=== PATIENT | male | born 1995 | race Caucasian/White ===

== ENCOUNTER 2016-04-20 20:21 | Emergency (ER) | payer OTHER ==
[~2016-04-20] VITALS: Ht 188 cm; Wt 118.0 kg
[2016-04-20 20:22] VITALS: BP 141/86; PULSE 84; RESP 14; TEMP 98.3; O2SAT 98
--- NOTE | 2016-04-20 21:23 | PD ---
HPI Chief Complaint: Skin Problem Time Seen by Provider: 21:20 Travel History International Travel<30 days: No Contact w/Intl Traveler<30days: No Traveled to known affect area: No History of Present Illness HPI Patient comes in complaining of a pruritic rash, her personal week. He states started on his hands has since spread over his entire body with sparing his face and genitals. Itching is worse at night. Denies anything making it better. Patient denies any fevers, being around anyone else with similar, or known new allergen exposures. PFSH Past Medical History Medical History: Denies Significant Hx Social History Alcohol Use: No Tobacco Use: Yes (cigars) Substance Use: No Allergies-Medications (Allergen,Severity, Reaction): Coded Allergies: No Known Allergies (Unverified , 04/20/16) Reported Meds & Prescriptions Reported Meds & Active Scripts Active Permethrin Topical (Permethrin) 5% Cream 1 Applic TOPICAL ONCE Review of Systems Except as stated in HPI: all other systems reviewed are Neg Physical Exam Narrative GENERAL: Well-developed, overly nourished, in no acute distress, and non-ill appearing. SKIN: Warm and dry. Patient has rash consistent with scabies noted bilateral upper extremities. HEAD: Atraumatic. Normocephalic. EYES: Pupils equal and round. EOMI. No scleral icterus. No injection or drainage. ENT: No nasal bleeding or discharge. Mucous membranes pink and moist. NECK: Trachea midline. Supple. No nuclear rigidity. RESPIRATORY: No accessory muscle use. No respiratory distress. MUSCULOSKELETAL: No obvious deformities. No clubbing. No cyanosis. No edema. Full range of motion. NEUROLOGICAL: Awake and alert. No obvious cranial nerve deficits. Motor grossly within normal limits. Normal speech. PSYCHIATRIC: Appropriate mood and affect; insight and judgment normal. Data Data Last Documented VS Vital Signs Date Time Temp Pulse Resp B/P Pulse Ox O2 Delivery O2 Flow Rate FiO2 04/20/16 20:22 98.3 84 14 141/86 98 Room Air MDM Medical Decision Making Medical Screen Exam Complete: Yes Emergency Medical Condition: Yes Differential Diagnosis Allergic reaction, cellulitis, folliculitis, scabies, cellulitis, other Narrative Course The patient presents with pruritic rash consistent with scabies. The lesions are papular and in the typical distribution for scabies. There is no evidence of secondary infection such as cellulitis or impetigo. The rash does not appear to be viral or typical of contact dermatitis or folliculitis by history and exam. Doubtful is atopic dermatitis as well. The patient was informed regarding spread by [id number] contact and via fomites such as clothes, blankets, bedding and furniture. The patient will be discharged on Permethrin cream and the patient was instructed on use and to avoid mouth, eyes, nose and anus. The patient was also instructed on having all family members and exposed persons seen by a primary career resource technician and be treated as well. The patient agreed with plan. Patient in no obvious distress upon re-evaluation. Patient was asked if they wanted to speak to my attending, which the patient did not wish to do at this time. Any questions/concerns in reference to patient diagnosis/condition discussed and clarified prior to patient's discharge. Reinforced sheer importance of close follow up with patient's primary physician or primary care clinic. Instructed patient to return to ED immediately, if symptoms return/ worsen. Pt showed understanding of above instructions. Further instructions and recommendations were detailed in discharge paperwork. Pt ambulated without difficulty out of ED at discharge. Diagnosis Primary Impression: Scabies Patient Instructions: General Instructions, Scabies (ED) Additional Instructions: Follow-up with your primary care physician one week for evaluation. Take all medication as prescribed. Return to the emergency department if symptoms get worse. Med/Other Pt SpecificInfo: Prescription(s) given Scripts Permethrin Topical 5% Cream1 Applic TOPICAL ONCE #1 TUBE Ref 0 Prov:Carey Thompson MD 04/20/16 Disposition: 01 DISCHARGE HOME Condition: Stable Jesse Baker Apr 20, 2016 21:23
[2016-04-20] MEDS ORDERED: PERM5CRE TOPICAL (21:24)
== END 2016-04-20 22:03 | disposition home or self-care (01) ==
LOC: NETRI 20:21
DX: B86 Scabies (principal); Z72.0 Tobacco use
CPT/HCPCS: 99283

== ENCOUNTER 2016-07-03 17:27 | Emergency (ER) | payer OTHER ==
[~2016-07-03] VITALS: Ht 188 cm; Wt 116.0 kg
[~2016-07-03 17:27] MED LIST: PERM5CRE TOPICAL
[2016-07-03 17:28] VITALS: BP 136/82; PULSE 100; RESP 14; TEMP 98.6; O2SAT 97
[2016-07-03] MEDS ORDERED: MINO100 PO (17:32)
[2016-07-03] MEDS ORDERED: PERM5CRE11 TOPICAL (17:56)
--- NOTE | 2016-07-03 17:56 | PD ---
HPI Chief Complaint: Skin Problem Time Seen by Provider: 17:40 Travel History International Travel<30 days: No Contact w/Intl Traveler<30days: No Traveled to known affect area: No History of Present Illness HPI 21-year-old male with no significant past medical history presents to the emergency department for evaluation of rash. Patient reports he was treated for scabies at infection last month he reports the symptoms resolved after using the Elimite cream. Approximately 7 days ago the rash returned to bilateral hands within the finger webs, waistband area and groin. He reports that the rash pruritic worse at night. He denies fevers, chills, nausea, vomiting, headache. PFSH Past Medical History Medical History: Denies Significant Hx Immunizations Current: Yes Tetanus Vaccination: < 5 Years Influenza Vaccination: No Past Surgical History Surgical History: No Previous Surgery Social History Alcohol Use: No Tobacco Use: Yes (cigars) Substance Use: No Allergies-Medications (Allergen,Severity, Reaction): Coded Allergies: No Known Allergies (Unverified , 07/03/16) Reported Meds & Prescriptions Reported Meds & Active Scripts Active Reported Minocycline (Minocycline HCl) 100 Mg Cap 100 Mg PO DAILY Review of Systems Except as stated in HPI: all other systems reviewed are Neg Physical Exam Narrative GENERAL: Well-nourished, well-developed patient. SKIN: Focused skin assessment warm/dry. Fine erythematous rash to lower abdomen , groin, webs of fingers. No lymphangitis. No lymphadenopathy. HEAD: Normocephalic. EYES: No scleral icterus. No injection or drainage. NECK: Supple, trachea midline. No JVD or lymphadenopathy. CARDIOVASCULAR: Regular rate and rhythm without murmurs, gallops, or rubs. RESPIRATORY: Breath sounds equal bilaterally. No accessory muscle use. GASTROINTESTINAL: Abdomen soft, non-tender, nondistended. MUSCULOSKELETAL: No cyanosis, or edema. BACK: Nontender without obvious deformity. No CVA tenderness. Data Data Last Documented VS Vital Signs Date Time Temp Pulse Resp B/P Pulse Ox O2 Delivery O2 Flow Rate FiO2 07/03/16 17:28 98.6 100 14 136/82 97 MDM Medical Decision Making Medical Screen Exam Complete: Yes Emergency Medical Condition: Yes Medical Record Reviewed: Yes Differential Diagnosis Scabies, contact dermatitis, unspecified rash Narrative Course 21-year-old male presents to the emergency department with a chief complaint of rash. He was treated for scabies one month ago at that point the rash resolved after using Elimite. He reports 7 days ago the rash returned and is now requesting treatment for scabies again. The rash is consistent with scabies. Patient will be treated with Elimite. He was instructed on home care of clothing, bedding for scabies treatment. Diagnosis Primary Impression: Scabies Referrals: Primary Care Physician Patient Instructions: General Instructions, Scabies (ED) Scripts Permethrin Topical (Elimite Topical)5% Cream1 Applic TOPICAL ONCE #1 TUBE Ref 0 Prov:Luda Pearson 07/03/16 Disposition: DISCHARGE HOME Condition: Stable Luda Pearson July 03, 2016 17:56
== END 2016-07-03 18:06 | disposition home or self-care (01) ==
LOC: NEPK 17:27
DX: B86 Scabies (principal)
CPT/HCPCS: 99283

== ENCOUNTER 2017-03-10 15:34 | Emergency (ER) | payer OTHER ==
[~2017-03-10 15:34] MED LIST changes: +MINO100 PO; -PERM5CRE TOPICAL; +PERM5CRE11 TOPICAL
[2017-03-10 16:01] VITALS: BP 114/72; PULSE 92; RESP 18; TEMP 97.9; O2SAT 94
[2017-03-10] MEDS ORDERED: SODIUM CHLOR 0.9% 1000 ML INJ 1,000 ML IV ONE (17:02)
--- NOTE | 2017-03-10 17:12 | PD ---
HPI Chief Complaint: Syncope/Near-Syncope Time Seen by Provider: 17:02 Travel History International Travel<30 days: No Contact w/Intl Traveler<30days: No Traveled to known affect area: No History of Present Illness HPI 21-year-old male presents to emergency department via EMS status post syncopal episode at work. This was witnessed. Patient has no history of this in the past. Patient has no history of seizure disorder in the past. Patient was [place] [employer] last evening, and was drinking with his friends. He admits to having at least 10 beers, but he states he quit drinking at 3:00. Patient slept and had to be at work at 1 PM today. Patient does not recall anything regarding the syncopal episode. Patient is noted to have a small contusion to the left lateral brow and left lower lateral lip, without laceration. He denies any other specific injury other than generalized aches and pains. Not nauseous, and has no abdominal pain. He has no chest pain or shortness of breath. He has no known drug allergies. [facility], [facility] Past Medical History Immunizations Current: Yes Social History Alcohol Use: No Tobacco Use: Yes (cigars) Substance Use: No Allergies-Medications (Allergen,Severity, Reaction): Coded Allergies: No Known Allergies (Unverified Adverse Reaction, Unknown, 03/10/17) Reported Meds & Prescriptions Reported Meds & Active Scripts Active No Active Prescriptions or Reported Medications Review of Systems Except as stated in HPI: all other systems reviewed are Neg General / Constitutional: No: Fever Eyes: No: Visual changes HENT: No: Headaches Cardiovascular: No: Chest Pain or Discomfort Respiratory: No: Shortness of Breath Gastrointestinal: No: Abdominal Pain Genitourinary: No: Dysuria Musculoskeletal: No: Pain Skin: No Rash Neurologic: No: Weakness Psychiatric: No: Depression Endocrine: No: Polydipsia Hematologic/Lymphatic: No: Easy Bruising Physical Exam Narrative GENERAL: Patient is alert and oriented 3. He is in no acute distress. SKIN: Warm and dry. Normal color. Normal turgor. Patient has small contusions to the left lateral brow and left lower lip. There is no abrasion or open wound. HEAD: Atraumatic. Normocephalic. Mild tenderness at the contusion site otherwise unremarkable. EYES: Pupils equal and round. No scleral icterus. No injection or drainage. Ocular motions are full and equal bilaterally. There is no nystagmus. ENT: No nasal bleeding or discharge. Mucous membranes pink and moist. No dental injury. Buccal membranes are intact. Pharynx is clear. Airway is patent. TMs are clear bilaterally. NECK: Trachea midline. No bony tenderness or step-off. Range of motion is full and supple. CARDIOVASCULAR: Regular rate and rhythm. RESPIRATORY: No accessory muscle use. Clear to auscultation. Breath sounds equal bilaterally. GASTROINTESTINAL: Abdomen soft, non-tender, nondistended. Hepatic and splenic margins not palpable. MUSCULOSKELETAL: Extremities without clubbing, cyanosis, or edema. No obvious deformities. NEUROLOGICAL: Awake and alert. No obvious cranial nerve deficits. Motor grossly within normal limits. Five out of 5 muscle strength in the arms and legs. Normal speech. PSYCHIATRIC: Appropriate mood and affect; insight and judgment normal. Data Data Last Documented VS Vital Signs Date Time Temp Pulse Resp B/P (MAP) Pulse Ox O2 Delivery O2 Flow Rate FiO2 03/10/17 19:06 74 18 111/59 (76) 100 Room Air 03/10/17 16:01 97.9 Orders Orders Electrocardiogram (03/10/17 15:58) Complete Blood Count With Diff (03/10/17 15:58) Comprehensive Metabolic Panel (03/10/17 15:58) Iv Access Insert/Monitor (03/10/17 15:58) Electrocardiogram (03/10/17 17:02) Magnesium (Mg) (03/10/17 17:02) Act Partial Throm Time (Ptt) (03/10/17 17:02) Prothrombin Time / Inr (Pt) (03/10/17 17:02) Urinalysis - C+S If Indicated (03/10/17 17:02) Chest, Single Ap (03/10/17 17:02) Ecg Monitoring (03/10/17 17:02) Oximetry (03/10/17 17:02) Ondansetron Inj (Zofran Inj) (03/10/17 17:15) Sodium Chloride 0.9% Flush (Ns Flush) (03/10/17 17:15) Sodium Chlor 0.9% 1000 Ml Inj (Ns 1000 M (03/10/17 17:02) Drug Screen, Random Urine (03/10/17 17:02) Alcohol (Ethanol) (03/10/17 17:02) Ct Brain W/O Iv Contrast(Rout) (03/10/17 ) Labs Laboratory Tests Test 03/10/17 16:29 03/10/17 17:17 03/10/17 17:19 White Blood Count 7.7 TH/MM3 Red Blood Count 4.75 MIL/MM3 Hemoglobin 14.6 GM/DL Hematocrit 41.2 % Mean Corpuscular Volume 86.7 FL Mean Corpuscular Hemoglobin 30.7 PG Mean Corpuscular Hemoglobin Concent 35.4 % Red Cell Distribution Width 12.8 % Platelet Count 274 TH/MM3 Mean Platelet Volume 7.3 FL Neutrophils (%) (Auto) 66.5 % Lymphocytes (%) (Auto) 25.8 % Monocytes (%) (Auto) 6.2 % Eosinophils (%) (Auto) 1.2 % Basophils (%) (Auto) 0.3 % Neutrophils # (Auto) 5.1 TH/MM3 Lymphocytes # (Auto) 2.0 TH/MM3 Monocytes # (Auto) 0.5 TH/MM3 Eosinophils # (Auto) 0.1 TH/MM3 Basophils # (Auto) 0.0 TH/MM3 CBC Comment AUTO DIFF Differential Comment AUTO DIFF CONFIRMED Blood Urea Nitrogen 11 MG/DL Creatinine 1.09 MG/DL Random Glucose 88 MG/DL Total Protein 8.6 GM/DL Albumin 4.5 GM/DL Calcium Level 9.5 MG/DL Alkaline Phosphatase 93 U/L Aspartate Amino Transf (AST/SGOT) 26 U/L Alanine Aminotransferase (ALT/SGPT) 36 U/L Total Bilirubin 0.3 MG/DL Sodium Level 139 MEQ/L Potassium Level 3.9 MEQ/L Chloride Level 105 MEQ/L Carbon Dioxide Level 26.0 MEQ/L Anion Gap 8 MEQ/L Estimat Glomerular Filtration Rate 85 ML/MIN Prothrombin Time 10.7 SEC Prothromb Time International Ratio 1.1 RATIO Activated Partial Thromboplast Time 22.9 SEC Magnesium Level 2.2 MG/DL Ethyl Alcohol Level LESS THAN 3 MG/DL Urine Color YELLOW Urine Turbidity CLEAR Urine pH 5.5 Urine Specific [place] 1.028 Urine Protein 30 mg/dL Urine Glucose (UA) NEG mg/dL Urine Ketones 10 mg/dL Urine Occult Blood NEG Urine Nitrite NEG Urine Bilirubin NEG Urine Urobilinogen LESS THAN 2.0 MG/DL Urine Leukocyte Esterase TRACE Urine RBC 1 /hpf Urine WBC 1 /hpf Urine Mucus FEW /lpf Microscopic Urinalysis Comment CULT NOT INDICATED Urine Opiates Screen NEG Urine Barbiturates Screen NEG Urine Amphetamines Screen NEG Urine Benzodiazepines Screen NEG Urine Cocaine Screen NEG Urine Cannabinoids Screen NEG MDM Medical Decision Making Medical Screen Exam Complete: Yes Emergency Medical Condition: Yes Differential Diagnosis Syncopal episode. Seizure. Hydration. Electrolyte imbalance. Narrative Course Patient is medically stable at time of exam. Labs ordered including CT scan, chest x-ray, EKG, CBC, CMP, urinalysis, urine drug screen, and serum alcohol level. Patient is given 1000 mL normal saline bolus. CBC is unremarkable. Coagulation studies are normal. Chemistries are normal. Urinalysis is concentrated with a specific gravity 1.028, protein is 30, ketones 10 otherwise unremarkable. Serum alcohol is 3, urine drug screen is negative. CT scan is unremarkable. Chest x-ray shows mild left perihilar infiltrate. Patient is much improved after 1 L of normal saline. Patient is felt to be stable for discharge home. Patient is to rest, push fluids, and follow-up with local primary care physician as needed. Return to work note given for tomorrow. Diagnosis Primary Impression: Vasovagal syncope Referrals: [facility] Primary Care Physician Patient Instructions: Dehydration (ED), General Instructions Additional Instructions: CBC is unremarkable. Coagulation studies are normal. Chemistries are normal. Urinalysis is concentrated with a specific gravity 1.028, protein is 30, ketones 10 otherwise unremarkable. Serum alcohol is 3, urine drug screen is negative. CT scan is unremarkable. Chest x-ray shows mild left perihilar infiltrate. Patient is much improved after 1 L of normal saline. Patient is felt to be stable for discharge home. Patient is to rest, push fluids, and follow-up with local primary care physician as needed. Return to work note given for tomorrow. Med/Other Pt SpecificInfo: No Meds Exist/No RX given Scripts No Active Prescriptions or Reported Meds Disposition: DISCHARGE HOME Condition: Stable Ramon Bustillos Mar 10, 2017 17:12
[2017-03-10] MEDS ORDERED: SODIUM CHLORIDE 0.9% FLUSH 10 ML FLUSH IVF PRN (17:15)
[2017-03-10] MEDS ORDERED: ONDANSETRON HCL 4 MG/2 ML VIAL IVP ONE (17:15)
[2017-03-10 17:23] LABS: AUTOMATED NEUTROPHIL # 5.1 TH/MM3 (1.8-7.7); BASOPHIL % 0.3 % (0.0-2.0); EOSINOPHIL # 0.1 TH/MM3 (0-0.4); EOSINOPHIL % 1.2 % (0.0-4.0); HEMATOCRIT 41.2 % (39.0-51.0); HEMOGLOBIN 14.6 GM/DL (13.0-17.0); LYMPH % 25.8 % (9.0-44.0); MEAN CELL VOLUME 86.7 FL (80.0-100.0); MEAN CORPUSCULAR HEMOGLOBIN 30.7 PG (27.0-34.0); MEAN CORPUSCULAR HGB CONC 35.4 % (32.0-36.0); MEAN PLATELET VOLUME 7.3 FL (7.0-11.0); MONO % 6.2 % (0.0-8.0); MONOCYTE # 0.5 TH/MM3 (0-0.9); NEUT % 66.5 % (16.0-70.0); PLATELET COUNT 274 TH/MM3 (150-450); RED BLOOD COUNT 4.75 MIL/MM3 (4.50-5.90); RED CELL DISTRIBUTION WIDTH 12.8 % (11.6-17.2); WHITE BLOOD COUNT 7.7 TH/MM3 (4.0-11.0)
[2017-03-10 17:25] VITALS: O2SAT 100
--- NOTE | 2017-03-10 17:39 | RADRPT ---
EXAM DATE/TIME: 03/10/2017 17:23 [facility] COMPARISON: No previous studies available for comparison. INDICATIONS : Palpitations MEDICAL HISTORY : None. SURGICAL HISTORY : None. ENCOUNTER: Initial ACUITY: 1 day PAIN SCORE: 0/10 LOCATION: chest FINDINGS: Mild to moderate left perihilar infiltrate. Right lung is clear. No pleural effusion demonstrated. No pneumothorax. Cardiomediastinal silhouette is normal. CONCLUSION: Mild left perihilar infiltrate. Hayes Jose MD on March 10, 2017 at 17:36 Board Certified Radiologist. This report was verified electronically.
[2017-03-10 17:41] LABS: ALBUMIN 4.5 GM/DL (3.4-5.0); AST (GOT) 26 U/L (15-37); BLOOD UREA NITROGEN 11 MG/DL (7-18); CALCIUM 9.5 MG/DL (8.5-10.1); CHLORIDE 105 MEQ/L (98-107); CREATININE 1.09 MG/DL (0.60-1.30); GLOMERULAR FILTRATION RATE 85 ML/MIN (>89); GLUCOSE,RANDOM 88 MG/DL (74-106); SODIUM (NA) 139 MEQ/L (136-145)
[2017-03-10 17:45] LABS: ALKALINE PHOSPHATASE 93 U/L (45-117); ALT (GPT) 36 U/L (12-78); TOTAL BILIRUBIN ADULT 0.3 MG/DL (0.2-1.0); TOTAL PROTEIN 8.6 GM/DL (6.4-8.2)
[2017-03-10 17:59] LABS: BILIRUBIN, URINE NEG (NEG); BLOOD, URINE NEG (NEG); GLUCOSE,URINE NEG (NEG); KETONE, URINE 10 mg/dL (NEG); MUCUS URINE FEW /lpf (OCC); NITRITE,URINE NEG (NEG); PH, URINE 5.5 (5.0-8.5); URINE COLOR YELLOW (YELLW/STRAW); URINE LEUKOCYTE ESTERASE TRACE (NEG)
[2017-03-10 18:01] LABS: INTERNATIONAL NORMALIZED RATIO 1.1 RATIO; MAGNESIUM 2.2 MG/DL (1.5-2.5); PROTHROMBIN TIME - PATIENT 10.7 SEC (9.8-11.6)
--- NOTE | 2017-03-10 18:15 | RADRPT ---
EXAM DATE/TIME: 03/10/2017 17:56 [facility] COMPARISON: No previous studies available for comparison. INDICATIONS : Syncopal episode; hypotensive. RADIATION DOSE: 42.66 CTDIvol (mGy) MEDICAL HISTORY : None SURGICAL HISTORY : None. ENCOUNTER: Initial ACUITY: 1 day PAIN SCALE: 3/10 LOCATION: cranial TECHNIQUE: Multiple contiguous axial images were obtained of the head. Using automated exposure control and adj ustment of the mA and/or kV according to patient size, radiation dose was kept as low as reasonably a chievable to obtain optimal diagnostic quality images. DICOM format image data is available electro nically for review and comparison. FINDINGS: CEREBRUM: The ventricles are normal for age. No evidence of midline shift, mass lesion, hemorrhage or acute in farction. No extra-axial fluid collections are seen. POSTERIOR FOSSA: The cerebellum and brainstem are intact. The 4th ventricle is midline. The cerebellopontine angle i s unremarkable. EXTRACRANIAL: The visualized portion of the orbits is intact. SKULL: The calvaria is intact. No evidence of skull fracture. CONCLUSION: Negative noncontrast head CT. Hayes Jose MD on March 10, 2017 at 18:11 Board Certified Radiologist. This report was verified electronically.
[2017-03-10 19:06] VITALS: BP 111/59; PULSE 74; RESP 18; O2SAT 100
--- NOTE | 2017-03-11 18:06 | EKG ---
Date Performed: 03/10/2017 Time Performed: 16:09:48 PTAGE: 21 years EKG: Sinus rhythm EARLY REPOLARIZATION Consider pericarditis, most likely injury pattern. Clinical corrolation is sugg ested. BORDERLINE ECG NO PREVIOUS TRACING DOCTOR: Jairo Salomon Interpretating Date/Time 03/11/2017 18:05:04
== END 2017-03-10 19:35 | disposition home or self-care (01) ==
LOC: NEDAMB 15:34 → NEPC 19:35
DX: R55 Syncope and collapse (principal); Z72.0 Tobacco use
CPT/HCPCS: 70450; 71045; 80053; 80307; 81001; 83735; 85025; 85610; 85730; 93005; 96374; 99285; J2405; J7030